=== PATIENT | female | born 2000 | race Caucasian/White ===

== ENCOUNTER → 2021-01-01 15:24 | Outpatient (BNVA) | payer SELFPAY | DX: Z20.822 Contact with and (suspected) exposure to COVID-19 (principal) | CPT/HCPCS: 36415; 87635 ==

== ENCOUNTER → 2021-01-05 08:08 | Outpatient (BNVA) | payer SELFPAY | DX: Z20.822 Contact with and (suspected) exposure to COVID-19 (principal) | CPT/HCPCS: 36415; 87635 ==